=== PATIENT | male | born 1970 | race Two or more races ===

== ENCOUNTER 2025-07-09 07:44 | Inpatient (IN) | payer OTHER ==
[2025-07-02 12:03] LABS: MEAN PLATELET VOLUME 8.6 FL (7.4-10.4); PRE OP HEMATOCRIT 39.8 % (42.0-52.0); PRE OP HEMOGLOBIN 13.4 g/dL (14.0-17.9); PRE OP PLATELET COUNT 305 X10'3 (140-440); PRE OP WHITE BLOOD COUNT 7.3 10'3 (4.8-10.8); RED CELL DISTRIBUTION WIDTH 14.7 % (11.5-14.5)
[2025-07-02 12:19] LABS: CREATININE 0.97 MG/DL (0.60-1.10); PRE OP ALT 32 U/L (30-65); PRE OP ANION GAP 7 (8-16); PRE OP AST 20 U/L (10-37); PRE OP BILIRUB, TOTAL 0.6 MG/DL (0.0-1.0); PRE OP GLUCOSE 89 MG/DL (70-104); PRE OP POTASSIUM 3.9 MMOL/L (3.4-5.1); PRE OP SODIUM 139 MMOL/L (135-145); TOTAL CARBON DIOXIDE 29.0 MMOL/L (24-32); eGFR 81 ML/MIN
[~2025-07-09] VITALS: Ht 175.3 cm; Wt 81.2 kg
[2025-07-09] VITALS (21 sets, daily range): BP systolic 126–193; BP diastolic 72–108; PULSE 56–97; RESP 10–20; TEMP 95.5–98.8; O2SAT 91–100
[2025-07-09] MEDS: ceFAZolin 2gm/dext,iso 50mL 50 ML IV ONE (05:30)
[2025-07-09] MEDS: ringers solution, lacted 1,000 ML IV SCH ×2 (05:30→10:10)
[~2025-07-09 07:44] MED LIST: LISI1TAB51 PO; MAGN100T PO; METF-900 PO; [UNRECOGNIZED DRUG - OTHER]
[2025-07-09] MEDS ORDERED: BUPIVAcaine 2.5mg/ml inj 50ml vial (contains preservative) ONE (09:19)
[2025-07-09] MEDS ORDERED: BUPIVACAINE liposomal/PF 13.3 MG/ML 10mL vial IM ONE (09:20)
[2025-07-09] MEDS ORDERED: midazolam 1 mg/ML 2ml injection ONE (09:44)
[2025-07-09] MEDS ORDERED: dexamethasone sod phosphate 4mg/ml inj. ONE (09:56)
[2025-07-09] MEDS ORDERED: LIDOcaine 2% (20mg/ml) 5ml vial ONE (09:56)
[2025-07-09] MEDS ORDERED: rocuronium 10mg/ml inj IV ONE (09:56)
[2025-07-09] MEDS ORDERED: propofol inj 20 ML IV ONE (09:56)
[2025-07-09] MEDS ORDERED: ondansetron/PF 4mg/2ml inj ONE (09:56)
[2025-07-09] MEDS ORDERED: fentaNYL /PF 50mcg/ml 5ml ampule ONE (09:56)
[2025-07-09] MEDS ORDERED: hydrALAZINE 20mg/ml inj. IV PRN (10:10)
[2025-07-09] MEDS ORDERED: morphine 4 MG/ML inj SYRINge IV PRN (10:10)
[2025-07-09] MEDS ORDERED: HYDROmorphone/PF 0.2 MG/ML SYRINGE IV PRN ×2 (10:10)
[2025-07-09] MEDS ORDERED: ondansetron/PF 4mg/2ml inj IV PRN ×2 (10:10→11:40)
[2025-07-09] MEDS ORDERED: glycopyrrolate 0.2mg/ml inj ONE (11:12)
[2025-07-09] MEDS ORDERED: morphine 10mg/ml inj. ONE (11:24)
[2025-07-09] MEDS: labetalol 20mg/4ml (5mg/ml) syringe IV PRN (11:35)
[2025-07-09] MEDS: acetaminophen 1,000mg/100ml IV 100 ML IV PRN (11:36)
[2025-07-09] MEDS ORDERED: HYDROmorphone inj. 0.5 MG/0.5 ML DISP.SYRIN IV PRN ×2 (11:39→11:40)
[2025-07-09] MEDS ORDERED: mag hydrox/Alum hydrox/simeth 30ml oral suspension PO PRN (11:40)
[2025-07-09] MEDS ORDERED: magnesium hydroxide 30ml (MOM) UD suspension PO PRN (11:40)
[2025-07-09] MEDS: HYDROmorphone inj. 0.5 MG/0.5 ML DISP.SYRIN IV PRN (11:42)
--- NOTE | 2025-07-09 11:44 | OPERATIVE REPORT ---
Operative Report Providers to ~ Date of Procedure: Jul 09, 2025 Pre-Operative Diagnosis: Left renal mass Post-Operative Diagnosis SAME as PRE-Op Procedure Performed Left radical hand assisted laparoscopic nephrectomy Surgeon: MD [employer]ia [employer] ARVIND Maldonado Anesthesiologist: Liang Stout Type of Anesthesia: General Findings: Left renal mass intact Complications None Prosthetics\Implants used: None Estimated Blood Loss: Less than 50 mL Specimen Removed: Left kidney Description of Procedure: Patient was brought to the operating room given a general anesthetic and placed in the right lateral position with the left side up. Patient was prepped and draped in the normal sterile fashion a time-out was performed. An incision was made lateral to the umbilicus on the left side 7 cm in length following which we dissected down to the fascial layer. Once down to the fascial layer used sharp dissection to open the fascia and then opened the peritoneum once into the peritoneum we placed the hand port following which we insufflated the abdomen. After the abdomen was insufflated additional 5 mm port was put superior to the hand port and a 12 mm port was put lateral to the hand port The colon was dropped along the white line of T[place]t from the kidney once the kidney was exposed I was able to isolate in the lower pole the ureter and followed this up to the renal hilum once that the renal hilum I was able to identify the artery and vein by palpation which point a vascular staple load was used to take the renal hilum. The harmonic was used for dissection around the lateral side of the kidney as well as the superior pole. The ureter was taken with a staple load as well following this the kidney was removed as well as the fat on top of the kidney through the hand port there was excellent hemostasis the adrenal gland was spared. FloSeal was put in for postoperative hemostasis as well Count was correct. The peritoneum was closed with 2-0 Vicryl suture following which the fascial layer was closed with 0 PDS suture. Exparel and Marcaine was used for postoperative pain control injected into each of the incisions and the skin was closed with 4-0 running Monocryl with Dermabond applied to the skin. Counts repoted as correct: Yes ANGEL RICO MD Jul 09, 2025 11:44
[2025-07-09] MEDS: docusate sod 100mg capsule PO SCH (20:00)
[2025-07-09] MEDS: heparin, porcine 5000 units/ml vial SQ SCH (20:30)
[2025-07-10 02:00] VITALS: BP 141/85; PULSE 65; RESP 15; TEMP 99.4; O2SAT 98
[2025-07-10 05:52] LABS: MEAN PLATELET VOLUME 9.1 FL (7.4-10.4); RED CELL DISTRIBUTION WIDTH 15.5 % (11.5-14.5)
[2025-07-10 06:00] VITALS: BP 174/92; PULSE 86; RESP 19; TEMP 98.6; O2SAT 98
[2025-07-10 06:09] LABS: CREATININE 1.60 MG/DL (0.60-1.10); TOTAL CARBON DIOXIDE 28.0 MMOL/L (24-32); eCRCL 53 ML/MIN; eGFR 45 ML/MIN
[2025-07-10 07:00] VITALS: RESP 17; O2SAT 98
[2025-07-10] MEDS: HYDROcodone/acetaminophen 5mg/325mg tablet PO PRN (07:19)
[2025-07-10 10:00] VITALS: BP 158/88; PULSE 79; RESP 17; TEMP 98.7; O2SAT 98
--- NOTE | 2025-07-10 13:28 | PROGRESS NOTE ---
Progress Progress Note: Patient is recovering as expected. Tolerating a diet, and has ambulated. Pain control is present but manageable. Patient is also having hiccups which are bothering him. Problem\Assessment\Plan Problems/Diagnosis: (1) Renal mass Status: Chronic Assessment & Plan: Recovering as expected. Catheter can come out today. Will continue to observe. Will continue to work on pain control. - Catheter out today - Continue to ambulate - Advance diet as able - Working on pain control Results/Orders Result Diagram: 07/10/25 0515 07/10/25 0515 Dietary Evaluation Comments: S 07/14 Will provide a full nutrition assessment on the above date. ANGEL RICO MD Jul 10, 2025 13:27
[2025-07-10 14:28] VITALS: RESP 14
--- NOTE | 2025-07-10 16:50 | DISCHARGE SUMMARY ---
Discharge Summary Providers to CC ~ Discharge Summary Assessment Left renal mass s/p nephrectomy Admission Diagnosis: Left renal mass Hospital Course DATE OF ADMISSION: 07/09/25 DATE OF DISCHARGE: 07/10/25 Discharge Diagnosis\Comment: Left renal mass Operations\Procedures: 07/09/25: Left laparoscopic radical nephrectomy Consultants: None Complications: None Condition on DC: Stable Discharge Summary: Patient tolerated a diet, ambulated, and voided without the catheter. Was ready for discharge home on POD #1. General: Awake and Alert, no acute distress. HEENT: Conjunctiva pink, Sclera clear, Mucus Membranes moist. Neck: Supple without masses and tenderness. Resp: Unlabored. Heart: Regular Rate and rhythm Abdomen: Incisions clean, dry, and intact Extremities: No cyanosis,clubbing or edema. Skin: Warm and Dry. *Problems/Diagnosis: (1) Renal mass Status: Chronic Assessment & Plan: Recovering as expected. Pain controlled. Ready for discharge home. - Discharge home Total Time Spent on D/C: Up to 30 Minutes ANGEL RICO MD Jul 10, 2025 16:50
== END 2025-07-10 17:15 | disposition home or self-care (01) | DRG 661 ==
LOC: PAS 07:44 → EDSTATUS 09:45 → PAS IN 11:41 → SUR 3N 14:15
PROVIDERS: ADMIT Urology; ATTEND Urology
PROC: 0TT14ZG Resection of Left Kidney, Percutaneous Endoscopic Approach, Hand-Assisted (ICD-10-PCS; principal; 2025-07-09 09:33)
DX: N28.89 Other specified disorders of kidney and ureter (principal); R06.6 Hiccough
CPT/HCPCS: 36415; 80048; 80053; 82948; 83036; 85025; 86885; 86900; 86901; 87081; A4615; A4618; A6410; A7000; C1758; G0378; J0131; J0666; J1100; J1171; J1644; J2003; J2250; J2274; J2405; J2704; J2710; J3010; J3490; J7120